=== PATIENT | female | born 1975 | race American Indian/Alaskan Native ===

== ENCOUNTER 2017-02-22 08:24 | Day surgery (SDC) | payer MEDICAID ==
[~2017-02-22 08:24] MED LIST: ANCEF/STERILE WATER 2 GM/20 ML IV NR; MARCAINE 0.5% INFILTRATI ONE; NACL 0.9% 1000 ML 1,000 ML IV SCH; NACL 0.9% IR ONE; NEOSPORIN GU IR ONE; PEPCID PO NR; VERSED IV NR
--- NOTE | 2017-02-22 09:45 | Anesthesia Consultation ---
Anesthesia Consult and Med Hx Date of service: 02/22/17 - Airway Anesthetic Teeth Evaluation: Good ROM Head & Neck: Adequate Mental/Hyoid Distance: Adequate Mallampati Class: Class II Intubation Access Assessment: Probably Good - Pulmonary Exam CTA: Yes - Cardiac Exam Cardiac Exam: RRR - Pre-Operative Health Status ASA Pre-Surgery Classification: ASA2 Proposed Anesthetic Plan: General - Pulmonary Hx Smoking: No Hx Asthma: No Hx Sleep Apnea: No - Cardiovascular System Hx Hypertension: No - Hematic Hx Anemia: Yes (NOT RECENT) - Other Systems Hx Cancer: No Hx Obesity: Yes
--- NOTE | 2017-02-22 09:45 | Anesthesia Day of Surgery ---
Anesthesia Day of Surgery - Day of Surgery Patient Examined: Yes Patient is NPO: Yes
[2017-02-22] MEDS ORDERED: DILAUDID IV PRN (10:00)
[2017-02-22] MEDS ORDERED: SUBLIMAZE ONE (10:48)
[2017-02-22] MEDS ORDERED: XYLOCAINE MPF 2% ONE (10:48)
[2017-02-22] MEDS ORDERED: DIPRIVAN 10 MG/ML IV ONE (10:49)
[2017-02-22] MEDS ORDERED: NEOSPORIN GU IR ONE (11:46)
[2017-02-22] MEDS ORDERED: DILAUDID ONE (12:22)
[2017-02-22] MEDS ORDERED: ZOFRAN ONE (12:54)
[2017-02-22] MEDS ORDERED: DECADRON ONE (12:54)
[2017-02-22] MEDS ORDERED: NACL 0.9% 1000 ML 1,000 ML ONE (13:09)
--- NOTE | 2017-02-22 13:10 | Procedure Note ---
Date of procedure: 02/22/17 Pre-op diagnosis: displaced fracture left proximal phalanx fifth finger Post-op diagnosis: same Procedure: Open reduction internal fixation proximal phalanx left fifth finger Procedure The patient was brought to the OR and placed in the OR table in supine position following induction and intubation by anesthesia the patient's left upper extremity was prepped and draped in the usual sterile manner. A timeout procedure was done to identify the patient and the correct operative site. The arm was then exsanguinated followed by inflation of the pneumatic tourniquet to 250 mmHg. A dorsal incision was made over the proximal phalanx this and then taken down sharply through skin and subcutaneous the extensor tendon was identified and was incised longitudinally as well and retractors were placed in the wound and fracture site was identified using a #15 blade early callus formation was debrided next the fracture site was manipulated followed by some traction on the distal phalanx a 8 hole 1.5 locking plate was applied to the fracture of proximal phalanx with screws of various size and orientation C-arm fluoroscopy was used and the fracture appeared reduced anatomically and hardware patient screws appear to be in good position following this the wound was copiously irrigated since the tendon was repaired using 4-0 nylon in a interrupted mattress fashion fashion this followed by closure of the subcutaneous and skin with blanquita and dressings were applied as as well as a well-padded AlumaFoam splint to the fifth finger tolerated procedure and there were no complications. She was sent to postanesthesia recovery in stable condition. Anesthesia: GETA Surgeon: LEMUEL FREEMAN (Ortiz Cintron 1st nurse assistant) Estimated blood loss: minimal Pathology: none Condition: stable Disposition: PACU
[2017-02-22] MEDS ORDERED: TRIPLE ANTIBIOTIC TP ONE (13:17)
--- NOTE | 2017-02-22 13:35 | Post Anesthesia Evaluation ---
- Post Anesthesia Evaluation Patient Participated: Yes Airway Patent: Yes Stable Respiratory Function: Yes Nausea/Vomiting: No Temp > 96.8F: Yes Pain Manageable: Yes Adequeate Hydration: Yes Anesthesia Complications: No Block Receding Appropriately: Not Applicable Patient on Ventilator: No
[2017-02-22] MEDS: DILAUDID IV PRN ×3 (13:40→14:20)
[2017-02-22] MEDS ORDERED: NORCO 7.5/325 PO PRN (13:59)
[2017-02-22] MEDS ORDERED: MARCAINE 0.5% INFILTRATI ONE (14:11)
--- NOTE | 2017-02-22 16:38 | XRay Report ---
Left fifth finger. History: ORIF. Findings: Multiple with 3 screws are seen transfixing a fracture of the fifth proximal phalanx with no radiographic signs of complications.
[2017-02-22 18:28] VITALS: BP 140/85
== END 2017-02-22 15:41 | disposition home or self-care (01) ==
LOC: OR 08:24
PROVIDERS: ATTEND Orthopaedic Surgery
DX: E66.9 Obesity, unspecified (principal); Z68.38 Body mass index [BMI] 38.0-38.9, adult; S62.617A Displaced fracture of proximal phalanx of left little finger, initial encounter for closed fracture; X58.XXXA Exposure to other specified factors, initial encounter; Y93.89 Activity, other specified; Y92.89 Other specified places as the place of occurrence of the external cause
CPT/HCPCS: 26735; 73140; 81025; C1713; J0690; J1100; J1170; J2250; J2405; J2704; J3010; J7030; A6250